=== PATIENT | male | born 1970 | race Caucasian/White ===

== ENCOUNTER 2023-02-24 07:39 | Day surgery (SDC) | payer OTHER ==
[~2023-02-24] VITALS: Ht 185.4 cm; Wt 146.5 kg
[2023-02-24] MEDS ORDERED: MIDAZOLAM 2 MG/2 ML VIAL ONE ×3 (08:44→09:55)
[2023-02-24] MEDS ORDERED: fentaNYL citrate 0.05 MG/ML VIAL ONE ×2 (08:44→09:54)
[2023-02-24] MEDS ORDERED: LIDOCAINE 2% 100 MG/5 ML UJET TP ONE (08:45)
[2023-02-24] MEDS ORDERED: DEXAMETHASONE 10 MG/ML VIAL ONE (10:01)
[2023-02-24] MEDS ORDERED: fentaNYL citrate 0.05 MG/ML VIAL IVP ONE (14:25)
[2023-02-24] MEDS ORDERED: MIDAZOLAM 2 MG/2 ML VIAL IVP ONE (14:25)
== END 2023-02-24 11:20 | disposition home or self-care (01) ==
LOC: MDS 07:39 → MMU 07:43 → MDS 11:20
PROVIDERS: ATTEND Internal Medicine Gastroenterology
DX: Z12.11 Encounter for screening for malignant neoplasm of colon (principal); K29.70 Gastritis, unspecified, without bleeding; K29.80 Duodenitis without bleeding; K56.699 Other intestinal obstruction unspecified as to partial versus complete obstruction; K57.30 Diverticulosis of large intestine without perforation or abscess without bleeding; K44.9 Diaphragmatic hernia without obstruction or gangrene; I10 Essential (primary) hypertension; E78.5 Hyperlipidemia, unspecified; E11.9 Type 2 diabetes mellitus without complications; E78.00 Pure hypercholesterolemia, unspecified; Z80.0 Family history of malignant neoplasm of digestive organs; Z88.1 Allergy status to other antibiotic agents; Z79.82 Long term (current) use of aspirin; Z79.84 Long term (current) use of oral hypoglycemic drugs; Z79.899 Other long term (current) drug therapy
CPT/HCPCS: 36415; 43239; 45380; 45381; 45386; 86677; 88305; J1100; J2250; J3010